=== PATIENT | female | born 1985 | race African-American/Black ===

== ENCOUNTER 2019-02-08 12:38 | Emergency (ER) | payer OTHER ==
--- NOTE | 2019-02-08 14:11 | CT ---
Exam: CT brain PROVIDED CLINICAL HISTORY: Head injury COMPARISON: None FINDINGS: The ventricular system is normal in size and morphology. No evidence for intracranial hemorrhage or mass effect. The extracranial soft tissues and osseous structures demonstrate no evidence for an acute abnormality. IMPRESSION: No evidence for intracranial hemorrhage or mass effect.
--- NOTE | 2019-02-08 14:14 | CT ---
EXAM: CT cervical spine PROVIDED CLINICAL HISTORY: Trauma COMPARISON: None FINDINGS: No evidence for fracture or traumatic subluxation. 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 No prevertebral soft tissue swelling apparent. Visualized lung apices appear clear. IMPRESSION: No evidence for fracture or traumatic subluxation.
[2019-02-08] MEDS ORDERED: HYDROcodone/Acetaminophen 10/325 mg Tablet ONE (14:19)
[2019-02-08] MEDS ORDERED: Lidocaine 1% (PF) 30 ML VIAL ONE (15:13)
== END 2019-02-08 15:43 | disposition home or self-care (01) ==
LOC: ERS 12:38
DX: S06.9X1A Unspecified intracranial injury with loss of consciousness of 30 minutes or less, initial encounter (principal); S01.01XA Laceration without foreign body of scalp, initial encounter; I10 Essential (primary) hypertension; Z79.899 Other long term (current) drug therapy; W17.89XA Other fall from one level to another, initial encounter
CPT/HCPCS: 12001; 70450; 72125; J2001

== ENCOUNTER 2019-04-10 17:46 | Emergency (ER) | payer OTHER ==
[2019-04-10 18:54] LABS: #Eosinphils 0.1 thou/uL (0.0-0.7); #Lymphocytes 3.1 thou/uL (1.20-3.40); #Monocytes 0.7 thou/uL (0.11-0.59); #Neutrophils 3.8 thou/uL (1.40-6.50); %Basophils 0.1 % (0.0-1.0); %Eosinophils 1.1 % (0.0-10.0); %Lymphocytes 40.2 % (21.0-51.0); %Monocytes 9.5 % (0.0-10.0); %Neutrophils 49.1 % (42.0-75.0); Hemoglobin 12.8 g/dL (12.0-16.0); Mean Corpuscular HGB CONC 33.3 g/dL (32.0-36.0); Mean Corpuscular Hemoglobin 29.4 pg (27.0-31.0); Mean Corpuscular Volume 88.1 fL (78.0-98.0); Mean Platelet Volume 6.7 fL (7.4-10.4); Platelet Count 315 thou/uL (130-400); RBC Distribution Width 11.9 % (11.5-14.5); Red Blood Cell (RBC) Count 4.35 mill/uL (4.20-5.40); White Blood Cell (WBC) Count 7.7 thou/uL (4.8-10.8)
[2019-04-10] MEDS ORDERED: Acetaminophen 500 MG TAB ONE (19:09)
--- NOTE | 2019-04-10 19:15 | RAD ---
PORTABLE CHEST: 04/10/19 HISTORY: Chest pain, shortness of breath. Lungs are clear. Heart and mediastinum unremarkable. IMPRESSION: No acute findings. POS: [facility]W
[2019-04-10 19:16] LABS: ALT (SGPT) 13 U/L (8-55); AST (SGOT) 14 U/L (5-34); Albumin 4.2 g/dL (3.5-5.0); Alkaline Phosphatase 99 U/L (40-110); Anion Gap 12 mmol/L (10-20); BUN (Urea Nitrogen) 22 mg/dL (7.0-18.7); Bilirubin, Total 0.3 mg/dL (0.2-1.2); Calc. Creatinine Clearance 0 mL/min (70-130); Calcium 9.2 mg/dL (7.8-10.44); Carbon Dioxide 28 mmol/L (22-29); Chloride 102 mmol/L (98-107); Estimated GFR-MDRD 50; Globulin 3.2 g/dL (2.4-3.5); Glucose 88 mg/dL (70-105); Potassium 3.9 mmol/L (3.5-5.1); Protein, Total 7.4 g/dL (6.0-8.3); Sodium 138 mmol/L (136-145)
--- NOTE | 2019-04-10 19:17 | RAD ---
LEFT SHOULDER: 04/10/19 Three views. HISTORY: Shoulder pain. FINDINGS/IMPRESSION: No evidence of fracture or dislocation. Widening of the subacromial space may be projectional; howeve r, mild subluxation is not excluded. No other evidence of acute process. POS: AGW
[2019-04-10 21:10] LABS: Troponin I 0.019 ng/mL (< 0.028)
[2019-04-10] MEDS ORDERED: Ketorolac Tromethamine 30 MG/ML VIAL ONE (21:53)
== END 2019-04-10 22:22 ==
LOC: ERS 17:46
DX: R07.9 Chest pain, unspecified (principal); I10 Essential (primary) hypertension; N94.6 Dysmenorrhea, unspecified; F41.9 Anxiety disorder, unspecified; F32.9 Major depressive disorder, single episode, unspecified; Z79.899 Other long term (current) drug therapy
CPT/HCPCS: 36415; 71045; 80053; 84484; 85025; 85379; 93005; 96372; J1885